=== PATIENT | female | born 1940 | race Caucasian/White ===

== ENCOUNTER 2017-10-16 15:42 | Emergency (ER) | payer OTHER ==
[~2017-10-16] VITALS: Ht 160 cm; Wt 64.1 kg
[2017-10-16 15:44] VITALS: TEMP 36.7; Ht 160 cm; Wt 64.1 kg
[2017-10-16] MEDS ORDERED: SODIUM CHLORIDE 0.9% 1000ML 1,000 ML IV STA (16:04)
[2017-10-16] MEDS ORDERED: DiphenhydrAMINE HCL 50 MG/ML VIAL IV STA (16:04)
[2017-10-16 16:31] LABS: BASO % 0.3 %; BASO ABS # 0.02 K/uL (0-0.2); EOS % 2.8 %; EOS ABS # 0.19 K/uL (0-0.5); HEMATOCRIT 39.4 % (37-47); HEMOGLOBIN 13.2 g/dL (12.0-16.0); LYMPH % 35.7 %; LYMPH ABS # 2.44 K/uL (1.2-3.4); MEAN CORPUSCULAR HEMOGLOBIN 30.5 pg (25-34); MEAN CORPUSCULAR HGB CONC 33.5 g/dl (32-36); MEAN PLATELET VOLUME 12.4 fL (7.4-10.4); MONO % 7.5 %; MONO ABS # 0.51 K/uL (0.11-0.59); NEUT % 53.7 %; NEUT ABS # 3.67 K/uL (1.4-6.5); PLATELET COUNT 141 K/uL (130-400); RED CELL DISTRIBUTION WIDTH CV 13.6 % (11.5-14.5); RED CELL DISTRIBUTION WIDTH SD 45.7 fL (36.4-46.3); WHITE BLOOD COUNT 6.83 K/uL (4.8-10.8)
[2017-10-16 16:54] VITALS: O2SAT 95
[2017-10-16 16:54] LABS: ALBUMIN 3.7 gm/dl (3.4-5.0); CALCIUM 8.6 mg/dl (8.5-10.1); CREATININE 0.67 mg/dl (0.60-1.20); POTASSIUM 3.5 mmol/L (3.5-5.1); TOTAL PROTEIN 7.2 gm/dl (6.4-8.2)
[2017-10-16] MEDS ORDERED: ESCI10TA17 PO (17:01)
[2017-10-16] MEDS ORDERED: ASPI81TA28 PO (17:01)
[2017-10-16] MEDS ORDERED: AMLO-110 PO (17:01)
[2017-10-16] MEDS ORDERED: METO100T14 PO (17:01)
--- NOTE | 2017-10-16 17:54 | DIAGNOSTIC IMAGING REPORT ---
ULTRASOUND L VENOUS DOPP LOWER EXT UNILAT CLINICAL HISTORY: Left lower extremity pain COMPARISON STUDY: No previous studies for comparison. FINDINGS: Real-time and color flow Doppler imaging were performed. Flow was seen within the femoral, popliteal and calf veins with no intraluminal thrombus demonstrated. The saphenous vein is patent. IMPRESSION: No evidence of left lower extremity DVT. Electronically signed by: Eyal Little M.D. 10/16/2017 5:53 PM Dictated Date/Time: 10/16/2017 5:53 PM
[2017-10-16] MEDS ORDERED: CEPH500C PO (18:08)
[2017-10-16] MEDS ORDERED: CEPHALEXIN MONOHYDRATE 250 MG CAP PO ONE (18:15)
[2017-10-16 18:59] VITALS: BP 138/77; PULSE 99
--- NOTE | 2017-10-16 19:57 | EMERGENCY ROOM VISIT NOTE ---
History Report prepared by Anselmo: Shiraz Cook Under the Supervision of: Dr. Antoine Rdz D.O. First contact with patient: 15:51 Chief Complaint: LEG PAIN,LEG INJURY Stated Complaint: LEG PAIN POSS BLOOD CLOT, RASH, UTI History of Present Illness The patient is a 77 year old female who presents to the Emergency Room with complaints of constant left calf pain beginning last night. The patient states it hurts to touch her left leg, and it was also burning for the past few days. She reports she started having shooting pain in her calf last night. The patient notes she also developed a rash that started on her right leg and spread to her chest, waist, and back. She states the rash itches, and she has been itching it. The patient reports she also developed a headache. Yesterday the patient states she developed pain and burning with urination. She notes she has been cleaning her daughter's house, and she denies using new soap, detergents, or chemicals. The patient states she has a history of a stroke on the right side, and she developed chronic weakness in her right arm and leg. She reports she wanted to make sure she did not have another stroke. The patient notes she takes aspirin daily. She denies new weakness in her legs, upper left leg pain, cough, runny nose, congestion, abdominal pain, chest pain, shortness of breath, vomiting, diarrhea, and starting new medication. Source of History: patient Onset: last night Position: leg (left calf) Timing: constant Associated Symptoms: + headache, + urinary symptoms (pain and burning with urination), + rash, No cough, No chest pain, No SOB, No vomiting, No abdominal pain, No diarrhea, No weakness Note: Denies: upper left leg pain, runny nose, congestion Review of Systems See HPI for pertinent positives & negatives. A total of 10 systems reviewed and were otherwise negative. Past Medical & Surgical Medical Problems: (1) Stroke Family History Patient reports no known family medical history. Social History Smoking Status: Never Smoker Marital Status: Housing Status: lives with family Occupation Status: disabled Current/Historical Medications Scheduled Amlodipine (Norvasc), 5 MG PO DAILY Aspirin (Aspirin Ec), 81 MG PO DAILY Cephalexin Monohydrate (Keflex), 500 MG PO QID Escitalopram (Lexapro), 10 MG PO DAILY Metoprolol Tartrate (Lopressor) (Lopressor), 100 MG PO DAILY Allergies Coded Allergies: Sulfa Antibiotics (Verified Allergy, Severe, RASH, 10/16/17) Physical Exam Vital Signs Date Time Temp Pulse Resp B/P (MAP) Pulse Ox O2 Delivery O2 Flow Rate FiO2 10/16/17 18:59 99 16 138/77 10/16/17 16:54 78 171/95 95 Room Air 10/16/17 15:44 36.7 69 20 168/84 98 Physical Exam GENERAL: Sitting up in bed, alert, well appearing, well nourished, no distress, non-toxic EYE EXAM: normal conjunctiva. PERRL and EOM's intact. OROPHARYNX: no exudate, no erythema, lips, buccal mucosa, and tongue normal and mucous membranes are moist NECK: supple, no nuchal rigidity, no adenopathy, non-tender LUNGS: Clear to auscultation. Normal chest wall mechanics HEART: no murmurs, S1 normal and S2 normal ABDOMEN: abdomen soft, non-tender, normo-active bowel sounds, no masses, no rebound or guarding. BACK: Back is symmetrical on inspection and there is no deformity, no midline tenderness, no CVA tenderness. SKIN: no rashes and no bruising UPPER EXTREMITIES: upper extremities are grossly normal. LOWER EXTREMITIES: No pitting edema. Left calf is larger than right and tender to palpation NEURO EXAM: Normal sensorium, cranial nerves II-XII intact, normal speech. Right upper extremity with slight contracture and hand. Weakness with grasp and flexion and extension. Right lower extremity is slightly weaker than left - at baseline per patient. Unable to perform finger to nose. Medical Decision & Procedures ER Provider Diagnostic Interpretation: Radiology results as stated below per my review and the radiologist's interpretation: ULTRASOUND L VENOUS DOPP LOWER EXT UNILAT CLINICAL HISTORY: Left lower extremity pain COMPARISON STUDY: No previous studies for comparison. FINDINGS: Real-time and color flow Doppler imaging were performed. Flow was seen within the femoral, popliteal and calf veins with no intraluminal thrombus demonstrated. The saphenous vein is patent. IMPRESSION: No evidence of left lower extremity DVT. Electronically signed by: Eyal Little M.D. 10/16/2017 5:53 PM Dictated Date/Time: 10/16/2017 5:53 PM Laboratory Results 10/16/17 16:13 Red Blood Count 4.33, Mean Corpuscular Volume 91.0, Mean Corpuscular Hemoglobin 30.5, Mean Corpuscular Hemoglobin Concent 33.5, Mean Platelet Volume 12.4, Neutrophils (%) (Auto) 53.7, Lymphocytes (%) (Auto) 35.7, Monocytes (%) (Auto) 7.5, Eosinophils (%) (Auto) 2.8, Basophils (%) (Auto) 0.3, Neutrophils # (Auto) 3.67, Lymphocytes # (Auto) 2.44, Monocytes # (Auto) 0.51, Eosinophils # (Auto) 0.19, Basophils # (Auto) 0.02 10/16/17 16:13 Test 10/16/17 16:13 White Blood Count 6.83 K/uL (4.8-10.8) Red Blood Count 4.33 M/uL (4.2-5.4) Hemoglobin 13.2 g/dL (12.0-16.0) Hematocrit 39.4 % (37-47) Mean Corpuscular Volume 91.0 fL (80-100) Mean Corpuscular Hemoglobin 30.5 pg (25-34) Mean Corpuscular Hemoglobin Concent 33.5 g/dl (32-36) Platelet Count 141 K/uL (130-400) Mean Platelet Volume 12.4 fL (7.4-10.4) Neutrophils (%) (Auto) 53.7 % Lymphocytes (%) (Auto) 35.7 % Monocytes (%) (Auto) 7.5 % Eosinophils (%) (Auto) 2.8 % Basophils (%) (Auto) 0.3 % Neutrophils # (Auto) 3.67 K/uL (1.4-6.5) Lymphocytes # (Auto) 2.44 K/uL (1.2-3.4) Monocytes # (Auto) 0.51 K/uL (0.11-0.59) Eosinophils # (Auto) 0.19 K/uL (0-0.5) Basophils # (Auto) 0.02 K/uL (0-0.2) RDW Standard Deviation 45.7 fL (36.4-46.3) RDW Coefficient of Variation 13.6 % (11.5-14.5) Immature Granulocyte % (Auto) 0.0 % Immature Granulocyte # (Auto) 0.00 K/uL (0.00-0.02) Urine Color YELLOW Urine Appearance CLEAR (CLEAR) Urine pH 5.5 (4.5-7.5) Urine Specific [place] 1.023 (1.000-1.030) Urine Protein NEG (NEG) Urine Glucose (UA) NEG (NEG) Urine Ketones NEG (NEG) Urine Occult Blood NEG (NEG) Urine Nitrite NEG (NEG) Urine Bilirubin NEG (NEG) Urine Urobilinogen NEG (NEG) Urine Leukocyte Esterase MODERATE (NEG) Urine WBC (Auto) 10-30 /hpf (0-5) Urine RBC (Auto) 0-4 /hpf (0-4) Urine Hyaline Casts (Auto) 0 /lpf (0-5) Urine Epithelial Cells (Auto) 20-30 /lpf (0-5) Urine Bacteria (Auto) 1+ (NEG) Anion Gap 6.0 mmol/L (3-11) Est Creatinine Clear Calc Drug Dose 65.4 ml/min Estimated GFR () 99.7 Estimated GFR (Non- 86.0 BUN/Creatinine Ratio 31.1 (10-20) Calcium Level 8.6 mg/dl (8.5-10.1) Total Bilirubin 0.4 mg/dl (0.2-1) Direct Bilirubin 0.1 mg/dl (0-0.2) Aspartate Amino Transf (AST/SGOT) 21 U/L (15-37) Alanine Aminotransferase (ALT/SGPT) 22 U/L (12-78) Alkaline Phosphatase 89 U/L (45-117) Total Protein 7.2 gm/dl (6.4-8.2) Albumin 3.7 gm/dl (3.4-5.0) Lipase 190 U/L (73-393) Laboratory results per my review. Medications Administered Medications (Trade) Dose Ordered Sig/Gregory Route Start Time Stop Time Status Last Admin Dose Admin Sodium Chloride 1,000 ml @ 999 mls/hr Q1H1M STAT IV 10/16/17 16:04 10/16/17 17:04 DC 10/16/17 16:16 999 MLS/HR Diphenhydramine HCl (Benadryl Inj) 25 mg NOW STAT IV 10/16/17 16:04 10/16/17 16:06 DC 10/16/17 16:16 25 MG Cephalexin Monohydrate (Keflex Cap) 500 mg NOW ONCE PO 10/16/17 18:15 10/16/17 18:16 DC 10/16/17 18:54 500 MG ED Course ED COURSE: Vital signs were reviewed and showed situational hypertension. The patients medical record was reviewed The above diagnostic studies were performed and reviewed. ED treatments and interventions as stated above. 1553: The patient was evaluated in room C11B. A complete history and physical examination was performed. 1604: Ordered Benadryl 25mg IV, Sodium Chloride 1000 ml @ 999 mls/hr IV 1801: Upon reevaluation, the patient is resting and feeling better. She is getting a dose of Keflex and leaving. I discussed my findings with the patient and she understands and agrees with the treatment plan. 1815: Ordered Keflex 500mg PO Based on the patients age, coexisting illnesses, exam and lab findings the decision to treat as an outpatient was made. The patient remained stable while under my care. The patient appeared well at the time of discharge. Medical Decision Differential diagnosis: Etiologies such as fracture, dislocation, neurovascular compromise, compartment syndrome, soft tissue injury, as well as others were entertained. Patient is a 77-year-old female who presents the ER for left leg pain and concern for stroke. She has pain in the back of her left calf. She also has some urinary symptoms and a mild headache. She is neurologically at her baseline. CBC along with BMP, LFTs, bilirubin lipase is unremarkable. UA did suggest a UTI although there was epithelial cells which could have been a contaminant. With her symptoms I did elect to treat with Keflex. Duplex of the lower extremity showed no DVTs. She is updated at bedside. She is discharged follow-up with PCP as an outpatient. Discussed with Pt concerning signs and symptoms to watch out for. Pt was instructed to follow up with their PCP and discussed with the patient their option to return to the ED at anytime for persistent or worsening symptoms. The appropriate anticipatory guidance and out-patient management, including indications for return to the emergency department, were explained at length to the patient and understood. Medication Reconcilliation Current Medication List: was personally reviewed by me Blood Pressure Screening Patient's blood pressure: Elevated blood pressure Blood pressure disposition: Elevated BP felt to be situational Impression Primary Impression: UTI (urinary tract infection) Additional Impression: Pain of left calf Scribe Attestation The scribe's documentation has been prepared under my direction and personally reviewed by me in its entirety. I confirm that the note above accurately reflects all work, treatment, procedures, and medical decision making performed by me. Departure Information Dispostion Home / Self-Care Prescriptions Cephalexin Monohydrate (Keflex) 500 Mg Cap 500 MG PO QID, #28 CAP Prov: Antoine Rdz, DO 10/16/17 Referrals Fausto Kent D.O. (PCP) Forms HOME CARE DOCUMENTATION FORM, IMPORTANT VISIT INFORMATION Patient Instructions ED UTI Cystitis Female, My [facility] Additional Instructions Please follow up with your primary care doctor with in the next 24 hours. Any worsening of your symptoms, please return to the ED immediately. This includes any fevers greater than 100.4, worsening pain, chest pain, shortness breath, persistent nausea, vomiting, unable to eat or drink, or any other concerning signs or symptoms from your standpoint. Please take Benadryl 50 mg as needed for itching. Please take Keflex 500 mg as prescribed Problem Qualifiers Primary Impression: UTI (urinary tract infection) Urinary tract infection type: acute cystitis Hematuria presence: with hematuria Qualified Codes: N30.01 - Acute cystitis with hematuria
== END 2017-10-16 19:00 | disposition home or self-care (01) ==
LOC: C.EDB 15:44 → C.EDC 19:00
DX: N30.01 Acute cystitis with hematuria (principal); Z88.2 Allergy status to sulfonamides; Z86.73 Personal history of transient ischemic attack (TIA), and cerebral infarction without residual deficits; Z79.82 Long term (current) use of aspirin; Z79.899 Other long term (current) drug therapy; M79.662 Pain in left lower leg